=== PATIENT | male | born 1980 | race American Indian/Alaskan Native ===

== ENCOUNTER 2020-08-27 13:02 | Inpatient (IN) | payer SELFPAY ==
[2020-08-27] MEDS ORDERED: PIPERACILLIN/TAZOBACTAM 3.375 3.375 GM/50 ML BAG IV ONE (13:23)
[2020-08-27] MEDS ORDERED: SODIUM CHLORIDE 0.9% 1000 ML 1,000 ML IV ONE ×3 (13:25→15:05)
--- NOTE | 2020-08-27 13:25 | Event Note ---
ED Screening Note Date of service: 08/27/20 Time: 13:23 ED Screening Note: Hayley cam with no significant past medical history was brought to the ER by with complaints of generalized weakness, lethargy, and shortness of breath for the past couple days. She states that he vomited once this morning. Patient denies any diarrhea, constipation, bloody stools, fever or chills at home. Denies any cough or chest pain. Denies any ill contacts or recent travel. Patient noted to be hypotensive and tachycardic at triage. They were also unable to get a temperature. Patient also appears ill and lethargic. Code sepsis was called secondary to patient's appearance and vital signs. This initial assessment/diagnostic orders/clinical plan/treatment(s) is/are subject to change based on patients health status, clinical progression and re- assessment by fellow clinical providers in the ED. Further treatment and workup at subsequent clinical providers discretion. Patient/guardian urged not to elope from the ED as their condition may be serious if not clinically assessed and managed. Initial orders include:
[2020-08-27 13:46] LABS: Basophils % (Auto) 0.2 % (0.0-1.8); Lymphocytes # (Auto) 0.9 K/mm3 (1.2-5.4); Lymphocytes % (Auto) 8.8 % (13.4-35.0); Mean Corpuscular HGB Conc 31 % (32-34); Mean Corpuscular Volume 91 fl (84-94); Monocytes # (Auto) 0.8 K/mm3 (0.0-0.8); Monocytes % (Auto) 8.2 % (0.0-7.3); Platelet Count 305 K/mm3 (140-440); Red Blood Count 5.25 M/mm3 (3.65-5.03); Red Cell Distribution Width 15.2 % (13.2-15.2)
[2020-08-27 13:48] LABS: Hematocrit 47.7 % (35.5-45.6); Hemoglobin 14.6 gm/dl (11.8-15.2)
[2020-08-27 14:04] LABS: BUN/Creatinine Ratio 14
[2020-08-27] MEDS ORDERED: CEFEPIME/NS 1 GM/100 ML 1 GM/100 ML BAG IV ONE (14:05)
[2020-08-27 14:10] LABS: Alanine Aminotransferase 9 units/L (7-56); Blood Urea Nitrogen 48 mg/dL (9-20); Calcium 10.8 mg/dL (8.4-10.2)
--- NOTE | 2020-08-27 14:10 | XRay Report ---
CHEST 1 VIEW INDICATION: SOB. COMPARISON: None FINDINGS: SUPPORT DEVICES: None. HEART: Within normal limits. LUNGS/PLEURA: No acute air space or interstitial disease. ADDITIONAL FINDINGS: None. IMPRESSION: 1. No acute findings. Signer Name: Hong Benítez MD Signed: 08/27/2020 2:06 PM Workstation Name: [id number]
[2020-08-27 14:11] LABS: Albumin 4.6 g/dL (3.9-5); Hemolysis Index 1
[2020-08-27] MEDS ORDERED: DEXTROSE 50% IN WATER (25GM) 50 ML SYRINGE IV PRN (14:25)
[2020-08-27 14:29] LABS: INR 1.09 (0.87-1.13)
[2020-08-27 14:30] LABS: Partial Thromboplastin Time 26.4 Sec. (24.2-36.6)
[2020-08-27] MEDS ORDERED: VANCOMYCIN 1,500 MG in SODIUM CHLORIDE 0.9% 500 ML 500 ML IV ONE (14:30)
--- NOTE | 2020-08-27 14:53 | Emergency Department Report ---
ED General Adult HPI - General Chief complaint: Weakness Stated complaint: WEAKNESS/SOB/DEHYDRATION Time Seen by Provider: 08/27/20 13:21 Source: patient Mode of arrival: Ambulatory Limitations: No Limitations - History of Present Illness Initial comments: This is a 39-year-old male with no prior medical history. He states he has been ill for 2 days. He just complains of generalized weakness. Essentially he gives a grossly negative review of systems. However with detailed questioning he does admit that he was very thirsty and urinating a lot before he got so weak. He associates his weakness with a mormon fast which he began 2 days ago. Patient denies any prior diagnosis of diabetes. He states his father is a diabetic. He denies any prior hospitalization or medical condition. He denies Covid testing, HIV testing or any sick contact. -: Gradual, days(s) (States only 2 days of generalized weakness) Radiation: other (No pain complaint) Consistency: constant Improves with: none Worsens with: none Associated Symptoms: other (Polyuria and polydipsia) - Related Data Allergies Allergy/AdvReac Type Severity Reaction Status Date / Time No Known Allergies Allergy Verified 08/27/20 13:16 ED Review of Systems ROS: Stated complaint: WEAKNESS/SOB/DEHYDRATION Other details as noted in HPI Constitutional: weakness. denies: chills, fever Eyes: denies: eye pain, vision change ENT: denies: ear pain, throat pain Respiratory: denies: cough, shortness of breath Cardiovascular: denies: chest pain, palpitations Endocrine: see HPI, increased thirst, increased urine. denies: increased hunger (States voluntary fasting) Gastrointestinal: denies: abdominal pain, nausea, diarrhea Genitourinary: denies: urgency, dysuria Musculoskeletal: denies: back pain, joint swelling, arthralgia Skin: denies: rash, lesions Neurological: denies: headache, weakness, paresthesias Psychiatric: denies: anxiety, depression Hematological/Lymphatic: denies: easy bleeding, easy bruising ED Past Medical Hx - Past Medical History Previous Medical History?: No - Surgical History Past Surgical History?: No - Family History Family history: diabetes - Social History Smoking Status: Never Smoker Substance Use Type: None ED Physical Exam - General Limitations: Physical Limitation General appearance: alert, other (Appears very volume depleted) - Head Head exam: Present: atraumatic, normocephalic - Eye Eye exam: Present: normal appearance. Absent: scleral icterus - ENT ENT exam: Present: mucous membranes dry - Neck Neck exam: Present: normal inspection. Absent: tenderness, meningismus - Respiratory Respiratory exam: Present: normal lung sounds bilaterally. Absent: respiratory distress - Cardiovascular Cardiovascular Exam: Present: regular rate, normal rhythm. Absent: systolic murmur, diastolic murmur, rubs, gallop - GI/Abdominal GI/Abdominal exam: Present: soft, normal bowel sounds. Absent: distended, tenderness, guarding, rebound, rigid - Rectal Rectal exam: Present: deferred - Extremities Exam Extremities exam: Present: normal inspection, normal capillary refill. Absent: calf tenderness - Back Exam Back exam: Present: normal inspection - Neurological Exam Neurological exam: Present: alert, oriented X3, CN II-XII intact. Absent: motor sensory deficit - Psychiatric Psychiatric exam: Present: normal mood, flat affect - Skin Skin exam: Present: warm, dry, intact, normal color. Absent: rash ED Course Vital Signs 08/27/20 08/27/20 08/27/20 13:17 13:50 13:53 Temperature 97.5 F L Pulse Rate 117 H 102 H Respiratory 16 16 Rate Blood Pressure 93/60 O2 Sat by Pulse 100 100 Oximetry - Reevaluation(s) Reevaluation #1: Volume resuscitation was begun. Patient's blood pressure reached a quang of 56 systolic prior to IV initiation. He is responding well to fluid bolus. His labs showed obvious DKA, type I. He has acute possibly acute on chronic renal i njury. Empiric antibiotics were ordered. Patient's lactic acid level was over 3. His white count was normal. There is yet no obvious focus for infection. Further source of evaluation is pending, urine culture and blood culture. Discussed case with Dr. Olivier, timber treatment plant operator. He will be seeing patient. Patient will be admitted to the hospitalist service. Insulin drip has been ordered. Close hemodynamic monitoring. ICU placement. 08/27/20 14:51 08/27/20 14:53 On reexamination the patient's isolation status was improving. His mental status seemed a bit better as he was slightly lethargic initially. Awaiting insulin drip. Reevaluation #2: Called pharmacy. They stated that we could come and pickling drum operator the insulin drip which will be ready as soon as someone gets there. Continue fluid bolus. Discussed with Dr. Castellanos and Dr. Zacarias to consult. Further care per above. Blood pressure is improving. Admit to intensive care. 08/27/20 15:03 ED Medical Decision Making - Lab Data Result diagrams: 08/27/20 13:28 08/27/20 13:28 Laboratory Results - last 24 hr 08/27/20 08/27/20 08/27/20 13:28 13:28 13:28 WBC 10.3 RBC 5.25 H Hgb 14.6 Hct 47.7 H MCV 91 MCH 28 MCHC 31 L RDW 15.2 Plt Count 305 Lymph % (Auto) 8.8 L [place] % (Auto) 8.2 H Eos % (Auto) 0.0 Baso % (Auto) 0.2 Lymph # (Auto) 0.9 L [place] # (Auto) 0.8 Eos # (Auto) 0.0 Baso # (Auto) 0.0 Seg Neutrophils % 82.8 H Seg Neutrophils # 8.5 H PT INR APTT D-Dimer Sodium 130 L Potassium 6.1 H* Chloride 81.5 L Carbon Dioxide 10 L Anion Gap 45 BUN 48 H Creatinine 3.4 H Estimated GFR 25 BUN/Creatinine Ratio 14 Glucose 1365 H* Lactic Acid 3.30 H* Calcium 10.8 H Total Bilirubin 0.20 AST 7 ALT 9 Alkaline Phosphatase 86 Troponin T < 0.010 Total Protein 8.4 H Albumin 4.6 Albumin/Globulin Ratio 1.2 08/27/20 14:10 WBC RBC Hgb Hct MCV MCH MCHC RDW Plt Count Lymph % (Auto) [place] % (Auto) Eos % (Auto) Baso % (Auto) Lymph # (Auto) [place] # (Auto) Eos # (Auto) Baso # (Auto) Seg Neutrophils % Seg Neutrophils # PT 13.9 INR 1.09 APTT 26.4 D-Dimer 344.64 H Sodium Potassium Chloride Carbon Dioxide Anion Gap BUN Creatinine Estimated GFR BUN/Creatinine Ratio Glucose Lactic Acid Calcium Total Bilirubin AST ALT Alkaline Phosphatase Troponin T Total Protein Albumin Albumin/Globulin Ratio - EKG Data -: EKG Interpreted by [place] EKG shows normal: axis (Left) Rate: tachycardia - EKG Data Interpretation: other (EKG is suggested hyperkalemia with peaked T waves and intraventricular conduction delay.) - Radiology Data Radiology results: report reviewed (Chest x-ray no acute process) Critical Care Time: Yes Critical care time in (mins) excluding proc time.: 90 Critical care attestation.: If time is entered above; I have spent that time in minutes in the direct care of this critically ill patient, excluding procedure time. ED Disposition Clinical Impression: Acute renal injury, Elevated lactic acid level DKA, type 1 Qualifiers: Diabetes mellitus complication detail: without coma Qualified Code(s): E10.10 - Type 1 diabetes mellitus with ketoacidosis without coma Disposition: 09 OP ADMIT IP TO THIS HOSP Is pt being admited?: Yes Does the pt Need Aspirin: No Condition: Stable Instructions: Diabetes Mellitus Type 2 in Adults (ED) Referrals: PRIMARY CARE, [Primary Care Provider] - 3-5 Days Time of Disposition: 15:04
[2020-08-27] MEDS ORDERED: VANCOMYCIN PHARMACY TO DOSE IV SCH (15:00)
[2020-08-27] MEDS ORDERED: SODIUM CHLORIDE 0.9% 1000 ML 3,000 ML IV ONE (15:04)
--- NOTE | 2020-08-27 15:05 | History and Physical Report ---
History of Present Illness Chief complaint: I have been feeling sick History of present illness: 39 YO Male with no PMH presents to ED for evaluation. Patient reports "I have been feeling sick for 2 days". Patient states that he has experienced generalized weakness, polydipsia, polyuria, dry mouth, over the past several days with worsening symptoms over the past 2 days. Patient transported to [facility] via private vehicle for further care and evaluation of the aforementioned symptoms. Patient seen and evaluated in the emergency department. All lab and imaging studies reviewed. Patient found to have DKA, metabolic acidosis, as well as acute kidney injury. Patient admitted to ICU and initiated on DKA protocol. Patient treated with IV fluid resuscitation therapy. Critical care team consulted in ED. Nephrology team consulted in ED. Patient denies fever, chills, chest pain, palpitation, productive cough, skin rash, recent ill contact, or known exposure to COVID-19. No prior admission for review. No med ication listed at time of admission for reconciliation. Past History Past Medical History: No medical history, other (Reviewed) Past Surgical History: No surgical history, Other (Reviewed) Social history: single. denies: smoking, alcohol abuse, prescription drug abuse Family history: diabetes Medications and Allergies Allergies Allergy/AdvReac Type Severity Reaction Status Date / Time No Known Allergies Allergy Verified 08/27/20 13:16 Active Meds: Active Medications Dextrose (Dextrose 50% In Water (25gm) 50 Ml Syringe) 0 ml IV Q30MIN PRN; Protocol PRN Reason: Hypoglycemia Vancomycin HCl 1,500 mg/ (Sodium Chloride) 530 mls @ 265 mls/hr IV ONCE ONE Stop: 08/27/20 16:29 Insulin Human Regular 100 (units/ Sodium Chloride) 100 mls @ 1 mls/hr IV TITR ARIS; Protocol Sodium Chloride (Nacl 0.9% 1000 Ml) 3,000 mls @ 999 mls/hr IV BOLUS ONE Stop: 08/27/20 18:04 Sodium Chloride (Sodium Chloride 0.9% 10 Ml Flush Syringe) 10 ml IV BID ARIS Sodium Chloride (Sodium Chloride 0.9% 10 Ml Flush Syringe) 10 ml IV PRN PRN PRN Reason: LINE FLUSH Review of Systems Constitutional: fatigue, weakness, no weight loss, no weight gain, no fever, no chills Ears, nose, mouth and throat: no ear pain, no ear discharge, no tinnitis, no decreased hearing, no nose pain, no nasal congestion, no nasal discharge Cardiovascular: no chest pain, no orthopnea, no palpitations, no syncope, no lightheadedness Respiratory: no cough, no cough with sputum, no excessive sputum, no hemoptysis, no shortness of breath, no dyspnea on exertion Gastrointestinal: no abdominal pain, no nausea, no diarrhea, no constipation Genitourinary Male: no hematuria, no flank pain, no discharge, no urinary frequency, no urinary hesitancy Rectal: no pain, no incontinence Musculoskeletal: no neck stiffness, no neck pain, no shooting arm pain, no low back pain, no leg numbness/tingling, no redness of joints Integumentary: no rash, no pruritis, no wounds, no jaundice Neurological: no head injury, no parathesias, no seizures, no syncope, no tremors Psychiatric: no anxiety, no change in sleep habits, no insomnia, no change in appetite, no change in libido, no suicidal ideation Endocrine: polyphagia, excessive thirst, polydipsia, polyuria, no excessive sweating, no flushing Hematologic/Lymphatic: no easy bruising, no easy bleeding Allergic/Immunologic: no urticaria, no allergic rhinitis Exam - Constitutional Vitals: Temp Pulse Resp BP Pulse Ox 97.5 F L 102 H 16 93/60 100 08/27/20 13:53 08/27/20 13:50 08/27/20 13:50 08/27/20 13:17 08/27/20 13:50 General appearance: Present: mild distress - EENT Eyes: Present: PERRL ENT: hearing intact, clear oral mucosa - Neck Neck: Present: supple, normal ROM - Respiratory Respiratory effort: normal Respiratory: bilateral: CTA - Cardiovascular Heart Sounds: Present: S1 & S2. Absent: rub, click - Extremities Extremities: pulses symmetrical, No edema Peripheral Pulses: within normal limits - Abdominal General gastrointestinal: Present: soft, non-tender, non-distended, normal bowel sounds Male genitourinary: Present: normal - Integumentary Integumentary: Present: dry, clammy, decreased turgor - Musculoskeletal Musculoskeletal: strength equal bilaterally - Psychiatric Psychiatric: appropriate mood/affect, intact judgment & insight - Neurologic Neurologic: CNII-XII intact, moves all extremities HEART Score - HEART Score Troponin: Troponin T < 0.010 ng/mL (0.00-0.029) 08/27/20 13:28 Results - Labs CBC & Chem 7: 08/27/20 13:28 08/27/20 16:37 Labs: Abnormal lab results 08/27/20 08/27/20 08/27/20 Range/Units 13:28 13:28 13:28 RBC 5.25 H (3.65-5.03) M/mm3 Hct 47.7 H (35.5-45.6) % MCHC 31 L (32-34) % Lymph % (Auto) 8.8 L (13.4-35.0) % [place]aine % (Auto) 8.2 H (0.0-7.3) % Lymph # (Auto) 0.9 L (1.2-5.4) K/mm3 Seg Neutrophils % 82.8 H (40.0-70.0) % Seg Neutrophils # 8.5 H (1.8-7.7) K/mm3 D-Dimer (0-234) ng/mlDDU Sodium 130 L (137-145) mmol/L Potassium 6.1 H* (3.6-5.0) mmol/L Chloride 81.5 L (98-107) mmol/L Carbon Dioxide 10 L (22-30) mmol/L BUN 48 H (9-20) mg/dL Creatinine 3.4 H (0.8-1.3) mg/dL Glucose 1365 H* (75-100) mg/dL Lactic Acid 3.30 H* (0.7-2.0) mmol/L Calcium 10.8 H (8.4-10.2) mg/dL Total Protein 8.4 H (6.3-8.2) g/dL 08/27/20 Range/Units 14:10 RBC (3.65-5.03) M/mm3 Hct (35.5-45.6) % MCHC (32-34) % Lymph % (Auto) (13.4-35.0) % [place] % (Auto) (0.0-7.3) % Lymph # (Auto) (1.2-5.4) K/mm3 Seg Neutrophils % (40.0-70.0) % Seg Neutrophils # (1.8-7.7) K/mm3 D-Dimer 344.64 H (0-234) ng/mlDDU Sodium (137-145) mmol/L Potassium (3.6-5.0) mmol/L Chloride (98-107) mmol/L Carbon Dioxide (22-30) mmol/L BUN (9-20) mg/dL Creatinine (0.8-1.3) mg/dL Glucose (75-100) mg/dL Lactic Acid (0.7-2.0) mmol/L Calcium (8.4-10.2) mg/dL Total Protein (6.3-8.2) g/dL Assessment and Plan - Patient Problems (1) DKA (diabetic ketoacidoses) Current Visit: Yes Status: Acute Qualifiers: Diabetes mellitus type: type 1 Plan to address problem: DKA protocol: Insulin drip, IV fluid resuscitation therapy, monitor urine output every shift, monitor anion gap, monitor fluid balance, monitor serum potassium, potassium repletion as per protocol, serial BMP. The high probability of a clinically significant, sudden or life threatening de terioration of the [endocrine, neuro, renal] system(s) required my full and direct attention, intervention and personal management. The aggregate critical care time was [65] minutes. This time is in addition to time spent performing reported procedures but includes the following: [x] Data Review and interpretation [x] Patient assessment and monitoring of vital signs [x] Documentation [x] Medication orders and management (2) ASHLEY (acute kidney injury) Current Visit: Yes Status: Acute Plan to address problem: IV fluid resuscitation therapy, monitor urine output every shift, BMP, repeat BMP in a.m. to monitor serum creatinine as well as GFR, urine electrolytes. Nephrology consulted in ED. (3) Metabolic acidosis Current Visit: Yes Status: Acute Plan to address problem: IV fluid resuscitation therapy, IV bicarbonate therapy, repeat BMP in a.m., (4) DVT prophylaxis Current Visit: Yes Status: Acute Plan to address problem: SCD to bilateral lower extremities while in bed,
[2020-08-27] MEDS ORDERED: SODIUM BICARB 8.4% 50 MEQ/50 ML SYRINGE IV ONE (15:18)
[2020-08-27] MEDS: INSULIN REGULAR, HUMAN 100 UNITS in SODIUM CHLORIDE 0.9% 99 ML IV SCH (15:18)
[2020-08-27] MEDS ORDERED: SODIUM CHLORIDE 0.9% 1000 ML 1,000 ML IV SCH (15:30)
[2020-08-27 17:35] LABS: Calcium 9.5 mg/dL (8.4-10.2)
[2020-08-27 17:46] LABS: C-Reactive Protein 0.4 mg/dL (0.00-1.30)
[2020-08-27 19:14] LABS: Calcium 10.1 mg/dL (8.4-10.2)
[2020-08-27] MEDS ORDERED: ETOMIDATE 20 MG/10 ML INJ IV ONE ×2 (19:16)
[2020-08-27] MEDS ORDERED: SUCCINYLCHOLINE CHLORIDE 200 MG/10 ML INJ MDV ONE (19:16)
[2020-08-27] MEDS ORDERED: LORazepam 2 MG/ML VIAL ONE (19:16)
[2020-08-27 19:56] LABS: Bilirubin,Urine NEG (Negative); Blood,Urine SM (Negative); Color,Urine Colorless (Yellow); Mucus,Urine FEW /HPF; Protein,Urine <15 mg/dL mg/dL (Negative); Urobilinogen,Urine < 2.0 mg/dL (<2.0); WBC,Urine < 1.0 /HPF (0.0-6.0)
[2020-08-27 20:02] LABS: Amphetamine Screen,Urine Negative; Benzodiazepines Screen,Urine Negative; Cannabinoid Screen,Urine Negative; Cocaine Screen,Urine Negative; Creatinine,Urine 31.7 mg/dL (0.1-20.0); Methadone Screen,Urine Negative; Opiate Screen,Urine Negative
[2020-08-27 21:40] LABS: Calcium 9.3 mg/dL (8.4-10.2)
[2020-08-28 00:28] LABS: Calcium 10.3 mg/dL (8.4-10.2)
[2020-08-28 05:46] LABS: Calcium 10.4 mg/dL (8.4-10.2)
[2020-08-28] MEDS: INSULIN REGULAR, HUMAN 100 UNITS in SODIUM CHLORIDE 0.9% 99 ML IV SCH (06:52)
[2020-08-28] MEDS ORDERED: D5W/0.45% NACL/KCL 20 MEQ 20 MEQ/1,000 ML BAG IV SCH (07:00)
[2020-08-28] MEDS ORDERED: D5NS W/KCL 20 MEQ 20 MEQ/1,000 ML BAG IV SCH (07:00)
[2020-08-28] MEDS ORDERED: DEXTROSE 50% IN WATER (25GM) 50 ML SYRINGE IV PRN (08:29)
[2020-08-28] MEDS ORDERED: INSULIN LISPRO 100 UNIT/ML SUB-Q ONE (09:00)
[2020-08-28] MEDS: SODIUM CHLORIDE 0.9% 1000 ML 1,000 ML IV SCH ×2 (09:00→22:21)
[2020-08-28] MEDS ORDERED: ACETAMINOPHEN 325 MG TAB PO PRN (09:28)
[2020-08-28] MEDS ORDERED: INSULIN NPH/REGULAR 70/30 INJ SUB-Q SCH (10:00)
[2020-08-28] MEDS: INSULIN LISPRO 100 UNIT/ML SUB-Q SCH ×3 (12:12→22:22)
--- NOTE | 2020-08-28 12:24 | Progress Note ---
Assessment and Plan Assessment and plan: -S/p DKA protocol with insulin drip -SSI -Accu-Cheks AC at bedtime -Trend BMP -Nephrology consulted, appreciate recommendations -Urine studies pending -MIVF with normal saline per nephrology -S/p 5 L normal saline bolus -CC diet -Hemoglobin A1c 11.5 -Renal ultrasound pending DVT prophylaxis: SCDs to bilateral shoes while in bed, heparin subcu GI prophylaxis: PPI Dispo: TTF History Interval history: This is a 39-year-old male with no known medical history who presented to the emergency department on 08/27 for complaints of generalized weakness, polydipsia, polyuria and dry mouth over the past several days worsening over the past 2 days. Work-up in the emergency department showed DKA, metabolic acidosis, and acute kidney injury. Patient received IV fluid resuscitation and was admitted to the ICU on DKA protocol. CCM and nephrology were consulted in the emergency department. 08/28: Patient transitioned to SSI as his anion gap has closed, hemoglobin A1c pending, patient is hypernatremic and hyperchloremic with improvement to his acute kidney injury to creatinine/BUN of 2/26. Patient will be transferred to the floor. Patient was consulted for diet education. DKA Acute kidney injury Undiagnosed diabetes mellitus Hypernatremia Hyperkalemia Hypercalcemia Metabolic acidosis Hospitalist Physical - Constitutional Vitals: Temp Pulse Resp BP Pulse Ox 99.4 F 90 15 128/79 99 08/28/20 08:00 08/28/20 11:00 08/28/20 11:00 08/28/20 11:00 08/28/20 11:00 General appearance: Present: no acute distress - EENT Eyes: Present: PERRL, EOM intact ENT: hearing intact, clear oral mucosa, dentition normal - Neck Neck: Present: normal ROM - Respiratory Respiratory effort: normal Respiratory: bilateral: CTA - Cardiovascular Rhythm: regular Heart Sounds: Present: S1 & S2. Absent: systolic murmur, diastolic murmur - Extremities Extremities: no ischemia, pulses intact, pulses symmetrical, No edema, normal temperature, normal color, Full ROM Peripheral Pulses: within normal limits - Abdominal General gastrointestinal: soft, non-tender, non-distended - Integumentary Integumentary: Present: clear, warm, dry - Psychiatric Psychiatric: appropriate mood/affect, cooperative - Neurologic Neurologic: CNII-XII intact, no focal deficits, moves all extremities - Allied Health Allied health notes reviewed: nursing HEART Score - HEART Score Troponin: Troponin T < 0.010 ng/mL (0.00-0.029) 08/27/20 13:28 Results - Labs CBC & Chem 7: 08/27/20 13:28 08/28/20 04:57 Labs: Laboratory Last Values WBC 10.3 K/mm3 (4.5-11.0) 08/27/20 13:28 RBC 5.25 M/mm3 (3.65-5.03) H 08/27/20 13:28 Hgb 14.6 gm/dl (11.8-15.2) 08/27/20 13:28 Hct 47.7 % (35.5-45.6) H 08/27/20 13:28 MCV 91 fl (84-94) 08/27/20 13:28 MCH 28 pg (28-32) 08/27/20 13:28 MCHC 31 % (32-34) L 08/27/20 13:28 RDW 15.2 % (13.2-15.2) 08/27/20 13:28 Plt Count 305 K/mm3 (140-440) 08/27/20 13:28 Lymph % (Auto) 8.8 % (13.4-35.0) L 08/27/20 13:28 [place] % (Auto) 8.2 % (0.0-7.3) H 08/27/20 13:28 Eos % (Auto) 0.0 % (0.0-4.3) 08/27/20 13:28 Baso % (Auto) 0.2 % (0.0-1.8) 08/27/20 13:28 Lymph # (Auto) 0.9 K/mm3 (1.2-5.4) L 08/27/20 13:28 [place] # (Auto) 0.8 K/mm3 (0.0-0.8) 08/27/20 13:28 Eos # (Auto) 0.0 K/mm3 (0.0-0.4) 08/27/20 13:28 Baso # (Auto) 0.0 K/mm3 (0.0-0.1) 08/27/20 13:28 Seg Neutrophils % 82.8 % (40.0-70.0) H 08/27/20 13:28 Seg Neutrophils # 8.5 K/mm3 (1.8-7.7) H 08/27/20 13:28 PT 13.9 Sec. (12.2-14.9) 08/27/20 14:10 INR 1.09 (0.87-1.13) 08/27/20 14:10 APTT 26.4 Sec. (24.2-36.6) 08/27/20 14:10 D-Dimer 499.43 ng/mlDDU (0-234) H 08/27/20 16:37 Sodium 154 mmol/L (137-145) H 08/28/20 04:57 Potassium 4.3 mmol/L (3.6-5.0) 08/28/20 04:57 Chloride 115.8 mmol/L (98-107) H 08/28/20 04:57 Carbon Dioxide 27 mmol/L (22-30) 08/28/20 04:57 Anion Gap 16 mmol/L 08/28/20 04:57 BUN 26 mg/dL (9-20) H 08/28/20 04:57 Creatinine 2.0 mg/dL (0.8-1.3) H 08/28/20 04:57 Estimated GFR 45 ml/min 08/28/20 04:57 BUN/Creatinine Ratio 13 % 08/28/20 04:57 Glucose 247 mg/dL (75-100) H 08/28/20 04:57 POC Glucose 167 mg/dL (70-105) H 08/28/20 08:31 Hemoglobin A1c 11.7 % (4-6) H 08/28/20 09:59 Lactic Acid 0.70 mmol/L (0.7-2.0) 08/27/20 23:33 Calcium 10.4 mg/dL (8.4-10.2) H 08/28/20 04:57 Phosphorus 4.10 mg/dL (2.5-4.5) 08/27/20 16:37 Magnesium 3.10 mg/dL (1.7-2.3) H 08/27/20 16:37 Ferritin 447.3 ng/mL (30.0-300.0) H 08/27/20 16:37 Total Bilirubin 0.20 mg/dL (0.1-1.2) 08/27/20 13:28 AST 7 units/L (5-40) 08/27/20 13:28 ALT 9 units/L (7-56) 08/27/20 13:28 Alkaline Phosphatase 86 units/L (35-129) 08/27/20 13:28 Lactate Dehydrogenase 203 units/L (91-180) H 08/27/20 16:37 Total Creatine Kinase 73 units/L (55-170) 08/27/20 16:37 CK-MB (CK-2) 2.0 ng/mL (0.0-4.0) 08/27/20 16:37 CK-MB (CK-2) Rel Index 2.7 (0-4) 08/27/20 16:37 Troponin T < 0.010 ng/mL (0.00-0.029) 08/27/20 13:28 C-Reactive Protein 0.40 mg/dL (0.00-1.30) 08/27/20 16:37 NT-Pro-B Natriuret Pep 25.23 pg/mL (0-450) 08/27/20 16:37 Total Protein 8.4 g/dL (6.3-8.2) H 08/27/20 13:28 Albumin 4.6 g/dL (3.9-5) 08/27/20 13:28 Albumin/Globulin Ratio 1.2 % 08/27/20 13:28 Procalcitonin 0.09 ng/mL (<0.15) 08/27/20 16:37 Urine Color Colorless (Yellow) 08/27/20 19:28 Urine Turbidity Clear (Clear) 08/27/20 19:28 Urine pH 5.0 (5.0-7.0) 08/27/20 19:28 Ur Specific [place] 1.024 (1.003-1.030) 08/27/20 19:28 Urine Protein <15 mg/dl mg/dL (Negative) 08/27/20 19:28 Urine Glucose (UA) >=500 mg/dL (Negative) 08/27/20 19:28 Urine Ketones 80 mg/dL (Negative) 08/27/20 19:28 Urine Blood Sm (Negative) 08/27/20 19:28 Urine Nitrite Neg (Negative) 08/27/20 19:28 Urine Bilirubin Neg (Negative) 08/27/20 19:28 Urine Urobilinogen < 2.0 mg/dL (<2.0) 08/27/20 19:28 Ur Leukocyte Esterase Neg (Negative) 08/27/20 19:28 Urine WBC (Auto) < 1.0 /HPF (0.0-6.0) 08/27/20 19:28 Urine RBC (Auto) 1.0 /HPF (0.0-6.0) 08/27/20 19:28 U Epithel Cells (Auto) < 1.0 /HPF (0-13.0) 08/27/20 19:28 Urine Mucus Few /HPF 08/27/20 19:28 Urine Creatinine 31.7 mg/dL (0.1-20.0) H 08/27/20 19:28 Urine Sodium 32 mmol/L 08/27/20 19:28 Salicylates < 0.3 mg/dL (2.8-20.0) L 08/27/20 16:37 Urine Opiates Screen Negative 08/27/20 19:28 Urine Methadone Screen Negative 08/27/20 19:28 Acetaminophen 5.0 ug/mL (10.0-30.0) L 08/27/20 16:37 Ur Barbiturates Screen Negative 08/27/20 19:28 Ur Phencyclidine Scrn Negative 08/27/20 19:28 Ur Amphetamines Screen Negative 08/27/20 19:28 U Benzodiazepines Scrn Negative 08/27/20 19:28 Urine Cocaine Screen Negative 08/27/20 19:28 U Marijuana (THC) Screen Negative 08/27/20 19:28 Drugs of Abuse Note Disclamer 08/27/20 19:28 Plasma/Serum Alcohol < 0.01 % (0-0.07) 08/27/20 16:37 Microbiology: Microbiology 08/27/20 13:30 Peripheral/Venous Blood Culture - Preliminary Culture in Progress 08/27/20 13:28 Peripheral/Venous Blood Culture - Preliminary Culture in Progress Michel/IV: Voiding Method Urinal Active Medications - Current Medications Current Medications: Generic Name Dose Route Start Last Admin Trade Name Freq PRN Reason Stop Dose Admin Acetaminophen 650 mg 08/28/20 09:28 08/28/20 09:35 Acetaminophen 325 Mg Tab PO 650 mg Q4H PRN Administration Pain, Mild (1-3) Dextrose 50 ml 08/28/20 08:29 Dextrose 50% In Water (25gm) 50 Ml Syringe IV Q30MIN PRN Hypoglycemia Protocol Insulin Human Regular 100 100 mls @ 1 mls/hr 08/27/20 15:00 08/28/20 09:00 units/ Sodium Chloride IV 0 units/hr TITR ARIS 0 mls/hr Titration Protocol 1 UNITS/HR Sodium Chloride 1,000 mls @ 100 mls/hr 08/28/20 08:00 08/28/20 09:00 Nacl 0.9% 1000 Ml IV 100 mls/hr DIRECT ARIS Administration Insulin Human Isoph/Insulin Regular 35 unit 08/28/20 17:00 Insulin Nph/Regular 70/30 Inj SUB-Q BIDDIAB ARIS Insulin Human Lispro 0 unit 08/28/20 11:30 08/28/20 12:12 Insulin Lispro 100 Unit/Ml SUB-Q 6 unit ACHS ARIS Administration Protocol Sodium Chloride 10 ml 08/27/20 22:00 08/28/20 09:09 Sodium Chloride 0.9% 10 Ml Flush Syringe IV 10 ml BID ARIS Administration Sodium Chloride 10 ml 08/27/20 15:02 Sodium Chloride 0.9% 10 Ml Flush Syringe IV PRN PRN LINE FLUSH Nutrition/Malnutrition Assess - Dietary Evaluation Nutrition/Malnutrition Findings: Nutrition Notes Start: 08/28/20 11:57 Freq: Status: Active Protocol: Document 08/28/20 11:57 (Rec: 08/28/20 12:03 [id number]) Nutrition Notes Need for Assessment generated from: MD Order,Education Current Diagnosis Acute Kidney Injury,Diabetes Other Pertinent Diagnosis DKA Current Diet Consistent CHO Labs/Tests A1c 11.7 Subjective/Other Information MD order for diet education of new onset DM. 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 reports pt eats 2-3 meals a day, typically with high CHO sources of food. Both given education on counting carbs and creating balanced meals with foods already enjoyed by pt. #1 Nutrition Diagnosis Food and nutrition-related knowledge deficit Etiology lack of prior education As Evidenced by Signs and Symptoms new DM diagnosis Nutrition Intervention Teaching Recipient Patient,Spouse Learning Readiness Good Teaching Methods Discussion,Handout Response to Teaching Verbalize understanding Education Handouts Provided Planning Healthy Meals Barriers to Learning No Barriers,Motivation RD phone number provided Yes Patient aware of follow up options Yes Actions To Overcome Barriers Other Anticipated Discharge Needs: Lenora MANSFIELD Revisit per MD consult or patient Sign Off request:
[2020-08-28] MEDS ORDERED: oxyCODONE /ACETAMINOPHEN 5-325MG TAB PO PRN (12:30)
[2020-08-28] MEDS ORDERED: ALUM-MAG HYDROXIDE-SIMETHICONE 200-200-20MG/5ML ORAL LIQD 30 ML PO PRN (12:30)
[2020-08-28] MEDS ORDERED: ONDANSETRON 4 MG/2 ML INJ IV PRN (12:30)
[2020-08-28] MEDS: FAMOTIDINE 20 MG TAB PO SCH (13:44)
[2020-08-28] MEDS ORDERED: VANCOMYCIN/NS 1 GM/250 ML 1 GM/250 ML BAG IV SCH (14:00)
--- NOTE | 2020-08-28 14:07 | Consultation ---
History of Present Illness - Reason for Consult Consult date: 08/28/20 acute renal failure - History of Present Illness Pleasant 39 y/o AAM with no PHMx presented to the ED with complaints of 2-3 days of worsening weakness. He had also noted increased polydipsia and polyuria. Initial labs were concerning for DKA and consequent acute renal failure for which nephrology was consulted at this time. Patient is currently being managed in the ICU. Labs reviewed, and renal function has shown steady improvement with aggressive fluid hydration and treatment of DKA. Started on diet this am as his anion gap had closed overnight. Per patient he does not take any medications at home, and has not followed up with a primary care physician in the outpatient setting. Past History Past Medical History: No medical history, other (Reviewed) Past Surgical History: No surgical history, Other (Reviewed) Social history: single. denies: smoking, alcohol abuse, prescription drug abuse Family history: diabetes Medications and Allergies Allergies Allergy/AdvReac Type Severity Reaction Status Date / Time No Known Allergies Allergy Verified 08/27/20 13:16 Home Medications Medication Instructions Recorded Confirmed Last Taken Type No Known Home Medications [No 08/28/20 08/28/20 Unknown History Reported Home Medications] Active Meds: Active Medications Acetaminophen (Acetaminophen 325 Mg Tab) 650 mg PO Q4H PRN PRN Reason: Pain, Mild (1-3) Last Admin: 08/28/20 09:35 Dose: 650 mg Documented by: Al Hydrox/Mg Hydrox/Simethicone (Alum-Mag Hydroxide-Simethicone [id number]/5ml Oral Liqd 30 Ml) 30 ml PO Q4H PRN PRN Reason: Indigestion Dextrose (Dextrose 50% In Water (25gm) 50 Ml Syringe) 50 ml IV Q30MIN PRN; Protocol PRN Reason: Hypoglycemia Docusate Sodium (Docusate Sodium 100 Mg Cap) 100 mg PO BID ARIS Famotidine (Famotidine 20 Mg Tab) 20 mg PO DAILY ARIS Last Admin: 08/28/20 13:44 Dose: 20 mg Documented by: Insulin Human Regular 100 (units/ Sodium Chloride) 100 mls @ 1 mls/hr IV TITR ARIS; Protocol Stop: 08/28/20 14:59 Last Titration: 08/28/20 09:00 Dose: 0 units/hr, 0 mls/hr Documented by: Sodium Chloride (Nacl 0.9% 1000 Ml) 1,000 mls @ 100 mls/hr IV DIRECT [facility] Last Admin: 08/28/20 09:00 Dose: 100 mls/hr Documented by: Insulin Human Isoph/Insulin Regular (Insulin Nph/Regular 70/30 Inj) 35 unit SUB-Q BIDDIAB ARIS Insulin Human Lispro (Insulin Lispro 100 Unit/Ml) 0 unit SUB-Q ACHS [facility]; Protocol Last Admin: 08/28/20 12:12 Dose: 6 unit Documented by: Ondansetron HCl (Ondansetron 4 Mg/2 Ml Inj) 4 mg IV Q8H PRN PRN Reason: Nausea And Vomiting Oxycodone/Acetaminophen (Oxycodone /Acetaminophen 5-325mg Tab) 1 tab PO Q6H PRN PRN Reason: Pain, Moderate (4-6) Sodium Chloride (Sodium Chloride 0.9% 10 Ml Flush Syringe) 10 ml IV BID [facility] Last Admin: 08/28/20 09:09 Dose: 10 ml Documented by: Sodium Chloride (Sodium Chloride 0.9% 10 Ml Flush Syringe) 10 ml IV PRN PRN PRN Reason: LINE FLUSH Review of Systems Constitutional: fatigue, weakness, malaise Exam - Vital Signs Vital signs: Vital Signs Pulse Resp BP Pulse Ox 117 H 16 93/60 100 08/27/20 13:17 08/27/20 13:17 08/27/20 13:17 08/27/20 13:17 - General Appearance General appearance: well-developed, well-nourished, appears stated age EENT: ATNC, PERRL Neck: Present: neck supple Respiratory: Clear to Ascultation, Normal Exam Heart: regular Gastrointestinal: Present: normal, normoactive bowel sounds Integumentary: no rash Neurologic: no focal deficit Musculoskeletal: Present: deferred Psychiatric: cooperative Results - Lab Results 08/27/20 13:28 08/28/20 04:57 Most recent lab results Calcium 10.4 mg/dL (8.4-10.2) H 08/28/20 04:57 Phosphorus 4.10 mg/dL (2.5-4.5) 08/27/20 16:37 Magnesium 3.10 mg/dL (1.7-2.3) H 08/27/20 16:37 Urine Creatinine 31.7 mg/dL (0.1-20.0) H 08/27/20 19:28 Urine Sodium 32 mmol/L 08/27/20 19:28 Assessment and Plan - Patient Problems (1) Hypernatremia Current Visit: Yes Status: Acute Plan to address problem: Continue with aggressive fluid hydration. As he has been started on oral diet, counseled patient on the importance of adequate fluid/water intake daily. (2) ASHLEY (acute kidney injury) Current Visit: Yes Status: Acute Plan to address problem: Renal function is showing improvement with appropriate hydration. Avoid nephrotoxins, maintain MAP >65mmHg. Will obtain UA along with urine electrolytes and UPC to determine whether they may be an element of CKD in the setting of diabetes. Will monitor renal function daily. Renal US ordered and pending at this time. (3) DKA (diabetic ketoacidoses) Current Visit: Yes Status: Acute Qualifiers: Diabetes mellitus type: type 1 Plan to address problem: Management per primary attending. (4) Metabolic acidosis Current Visit: Yes Status: Acute Plan to address problem: Anion gap has closed at this time. Started on oral diet. Will monitor closely.
[2020-08-28 15:25] LABS: Chloride, Urine 179.4 mmolL (110-250); Creatinine,Urine 139.5 mg/dL (0.1-20.0)
[2020-08-28] MEDS: DOCUSATE SODIUM 100 MG CAP PO SCH (22:22)
[2020-08-28] MEDS: INSULIN NPH/REGULAR 70/30 INJ SUB-Q SCH (22:26)
[2020-08-28 23:50] LABS: BUN/Creatinine Ratio 10; Blood Urea Nitrogen 15 mg/dL (9-20); Calcium 9.7 mg/dL (8.4-10.2); Hemolysis Index 9
[2020-08-29 05:23] VITALS: BP 125/73
[2020-08-29 06:44] LABS: BUN/Creatinine Ratio 9; Blood Urea Nitrogen 14 mg/dL (9-20); Calcium 9.4 mg/dL (8.4-10.2); Hemolysis Index 10
--- NOTE | 2020-08-29 08:52 | Discharge Summary ---
Providers - Providers Date of Admission: 08/27/20 15:02 Date of discharge: 08/29/20 Attending physician: IVON WRIGHT 08/27/20 14:25 Consult to Case Management [CONS] Routine Services Needed at Discharge: Other Notified:: angus 08/27/20 14:35 Consult to Physician [CONS] Stat Comment: Consulting Provider: DAT VILLALBA Physician Instructions: Reason For Exam: DKA, Renal Failure 08/28/20 09:15 Consult to Dietitian/Nutrition [CONS] Routine Physician Instructions: Reason For Exam: Reason for Consult: Diet education Primary care physician: HANSARD REPORTER Hospitalization Condition: Stable Hospital course: 39-year-old male with no medical history admitted to the hospital with chief complaints of generalized weakness, polydipsia, polyuria and dry mouth for the past several days. Patient notes that symptoms have been getting worse for the past 2 days. Work-up in emergency room showed DKA, metabolic acidosis and acute kidney injury. Patient was started on IV hydration admitted to the hospital in DKA protocol. Critical care and nephrology were consulted Hospital course Patient started on DKA protocol. Anion gap closed and patient was transitioned to subcutaneous insulin. Patient has a history of diabetes in the family. His hemoglobin A1c is 11.5. His renal function is stable. Patient's blood sugar has remained stable in the low 200s. He mentions that he has no active insurance at this time but family is currently working on it. He will be discharged home on Novolin 70/30 for now. He will need to have a primary medical doctor which family is currently working on. He has been advised to check his blood sugar twice a day. He will also need to have repeat renal function panel in 1 to 2 weeks. Disposition: - TO HOME OR SELFCARE Time spent for discharge: 40 minutes - Discharge Diagnoses (1) ASHLEY (acute kidney injury) Status: Resolved Comment: Likely vasomotor nephropathy (2) DKA (diabetic ketoacidoses) Status: Resolved Qualifiers: Diabetes mellitus type: type 1 Comment: Resolved Core Measure Documentation - Palliative Care Palliative Care/ Comfort Measures: Not Applicable - Core Measures Any of the following diagnoses?: none Exam - Constitutional Vitals: Temp Pulse Resp BP Pulse Ox 99.2 F 94 H 20 125/73 97 08/29/20 04:25 08/29/20 04:25 08/29/20 04:25 08/29/20 04:25 08/29/20 04:25 General appearance: Present: no acute distress, well-nourished - EENT Eyes: Present: PERRL ENT: hearing intact, clear oral mucosa - Neck Neck: Present: supple, normal ROM - Respiratory Respiratory effort: normal Respiratory: bilateral: CTA - Cardiovascular Heart Sounds: Present: S1 & S2. Absent: rub, click - Extremities Extremities: pulses symmetrical, No edema Peripheral Pulses: within normal limits - Abdominal General gastrointestinal: Present: soft, non-tender, non-distended, normal bowel sounds Male genitourinary: Present: normal - Integumentary Integumentary: Present: clear, warm, dry - Musculoskeletal Musculoskeletal: gait normal, strength equal bilaterally - Psychiatric Psychiatric: appropriate mood/affect, intact judgment & insight - Neurologic Neurologic: CNII-XII intact, moves all extremities Plan Diet: diabetic Additional Instructions: Take insulin as prescribed. Take metformin twice a day. Continue to monitor blood glucose closely twice a day. Follow-up with a primary medical doctor within 1 to 2 weeks after discharge. He will need to have repeat hemoglobin A1c done in 8 -12 weeks Follow up with: PRIMARY CARE, [Primary Care Provider] - 3-5 Days Prescriptions: Lancets [Freestyle Lancets] 1 each MC BID #120 each Flash Glucose Scanning [place] [Freestyle Sam 14 Day [place]] 1 each MC BID #90 each Flash Glucose Sensor [Freestyle Sam 14 Day Sensor] 1 each MC BID #90 kit metFORMIN [Glucophage] 500 mg PO BID #90 tablet Insulin NPH/Regular [NovoLIN 70/30] 35 unit SUB-Q BIDDIAB #30 ml
[2020-08-29] MEDS: INSULIN LISPRO 100 UNIT/ML SUB-Q SCH (09:35)
[2020-08-29] MEDS: DOCUSATE SODIUM 100 MG CAP PO SCH (09:35)
[2020-08-29] MEDS: FAMOTIDINE 20 MG TAB PO SCH (09:35)
[2020-08-29] MEDS: INSULIN NPH/REGULAR 70/30 INJ SUB-Q SCH (09:35)
--- NOTE | 2020-08-29 11:17 | Ultrasound Report ---
Renal ultrasound INDICATION: Acute kidney disease FINDINGS: Right kidney measures 7.7 x 5.0 cm. Left kidney measures 9.5 x 5.4 cm. No cortical thinning . No hydronephrosis. Small hypodensities are seen within bilateral kidneys suggesting renal cyst. One of the cysts on the right measures 1.3 x 0.9 cm. Tiny foci in bilateral major portion kidneys could represent tiny nonobstructing renal calculi. IMPRESSION: 1. Bilateral renal cysts. Small foci in bilateral kidneys could represent tiny nonobstructing calcifi cations. No obstructing stone or hydronephrosis. Signer Name: Eugene Melendez MD Signed: 08/29/2020 11:13 AM Workstation Name: [email or web address]
[2020-08-29 12:02] LABS: Bilirubin,Urine NEG (Negative); Color,Urine Yellow (Yellow)
[2020-08-29 12:03] LABS: Blood,Urine NEG (Negative); Mucus,Urine FEW /HPF; Urobilinogen,Urine < 2.0 mg/dL (<2.0)
== END 2020-08-29 12:46 | disposition home or self-care (01) | DRG 637 ==
LOC: ED 13:02 → CC1 15:02 → 3A 08-28 14:21
PROVIDERS: ADMIT Internal Medicine; ATTEND Internal Medicine
DX: E10.10 Type 1 diabetes mellitus with ketoacidosis without coma (principal); N17.0 Acute kidney failure with tubular necrosis; E87.0 Hyperosmolality and hypernatremia; E87.5 Hyperkalemia; E83.52 Hypercalcemia; R63.1 Polydipsia; Z20.822 Contact with and (suspected) exposure to COVID-19; Z83.3 Family history of diabetes mellitus
CPT/HCPCS: 36415; 71045; 76770; 80048; 80053; 80307; 80320; 81001; 82140; 82436; 82550; 82553; 82570; 82728; 82962; 83036; 83615; 83735; 83880; 84100; 84145; 84300; 84484; 85025; 85379; 85610; 85730; 86140; 87040; 87086; 93005; 96361; 96365; 96366; 96372; 96375; G0378; G0480; J0330; J0692; J1815; J2060; J3370; J7030; J7040; U0003